=== PATIENT | male | born 1935 | race American Indian/Alaskan Native ===

== ENCOUNTER 2016-11-26 19:05 | Emergency (ER) | payer MEDICARE ==
[2016-11-26 20:16] LABS: Hemoglobin 12.1 gm/dl (11.8-15.2); Mean Corpuscular HGB Conc 33 % (32-34); Mean Corpuscular Hemoglobin 32 pg (28-32); Mean Corpuscular Volume 96 fl (84-94); Platelet Count 168 K/mm3 (140-440); Red Blood Count 3.84 M/mm3 (3.65-5.03); Red Cell Distribution Width 15.3 % (13.2-15.2); White Blood Count 3.4 K/mm3 (4.5-11.0)
[2016-11-26 20:40] LABS: Anion Gap 13 mmol/L; BUN/Creatinine Ratio 18.75; Blood Urea Nitrogen 15 mg/dL (9-20); Calcium 8.3 mg/dL (8.4-10.2); Carbon Dioxide 31 mmol/L (22-30); Chloride 98.2 mmol/L (98-107); Glucose 262 mg/dL (75-100); Potassium 4.4 mmol/L (3.6-5.0); Sodium 138 mmol/L (137-145)
[2016-11-26 23:05] VITALS: BP 163/64
--- NOTE | 2016-11-26 23:52 | Emergency Department Report ---
HPI - General Chief Complaint: Dyspnea/Respdistress - HPI HPI: Patient with history of CABG came to ED with no complaints really but he was being evaluated by home health when they noticed he was short of breath. Patient is on home oxygen. He was advised to come to the deep abdomen and person. Denies any leg swelling, denies any PND orthopnea. ED Past Medical Hx - Past Medical History Previous Medical History?: Yes Hx Hypertension: Yes Hx Congestive Heart Failure: No Hx Diabetes: Yes (iddm type 2) Hx GERD: Yes Hx Asthma: Yes Hx COPD: Yes Additional medical history: osteoporosis, Dementia, fib, cad, anemia, hyperlipidemia - Surgical History Past Surgical History?: Yes Hx Open Heart Surgery: Yes (2010) - Social History Smoking Status: Never Smoker Substance Use Type: None - Medications Home Medications: Home Medications Medication Instructions Recorded Confirmed Last Taken Type Acetaminophen [Acetaminophen TAB] 500 mg PO Q6HR 10/03/16 10/03/16 10/02/16 History Albuterol Sulfate [Albuterol 0.63% 0.63 mg IH TID PRN 10/03/16 10/03/16 History NEBS] Amiodarone HCl [Amiodarone 100 MG 200 mg PO DAILY 10/03/16 10/03/16 10/02/16 History TAB] Aspirin EC [Aspirin Enteric Coated 81 mg PO QDAY 10/03/16 10/03/16 10/02/16 History TAB] Bicalutamide [Casodex] 50 mg PO DAILY 10/03/16 10/03/16 10/02/16 History Budesonide 1 mg IH DAILY 10/03/16 10/03/16 10/02/16 History Cetirizine HCl [ZyrTEC] 10 mg PO DAILY 10/03/16 10/03/16 10/02/16 History Cilostazol [Pletal] 100 mg PO BID 10/03/16 10/03/16 10/02/16 History Cyanocobalamin (Vitamin B-12) 500 mcg SL DAILY 10/03/16 10/03/16 10/02/16 History [Vitamin B-12] Dextrin [Fiber] 350 gm PO DAILY 10/03/16 10/03/16 10/02/16 History Famotidine [Pepcid] 20 mg PO BID 10/03/16 10/03/16 10/02/16 History Formoterol Fumarate [Perforomist] 20 mcg IH DAILY 10/03/16 10/03/16 10/02/16 History Furosemide [Lasix TAB] 40 mg PO QDAY 10/03/16 10/03/16 10/02/16 History Gabapentin [Neurontin] 300 mg PO BID 10/03/16 10/03/16 10/02/16 History Latanoprost 0.005% [Xalatan 0.005%] 1 drop OP QPM 10/03/16 10/03/16 10/02/16 History Levothyroxine Sodium [Levo-T] 50 mcg PO DAILY 10/03/16 10/03/16 10/02/16 History Loperamide HCl [Imodium A-D] 2 mg PO DAILY 10/03/16 10/03/16 10/02/16 History Memantine HCl/Donepezil HCl 1 each PO DAILY 10/03/16 10/03/16 10/02/16 History [Namzaric 28 mg-10 mg Capsule] Metoprolol Xl [Metoprolol 50 mg PO QDAY 10/03/16 10/03/16 10/02/16 History SUCCINATE ER TAB] Psyllium Husk/Aspartame [Metamucil 3.4 gm PO DAILY 10/03/16 10/03/16 10/02/16 History Fiber Singles Packet] Simvastatin [Zocor TAB] 40 mg PO QHS 10/03/16 10/03/16 10/02/16 History Tamsulosin [Flomax] 0.4 mg PO QDAY 10/03/16 10/03/16 10/02/16 History Zolpidem Tartrate [Edluar SUBL] 5 mg SL QHS PRN 10/03/16 10/03/16 10/02/16 History diphenhydrAMINE [Benadryl CAP] 25 mg PO Q8HR PRN 10/03/16 10/03/16 10/02/16 History guaiFENesin DM [Robitussin Dm] 10 ml PO Q6HR 10/03/16 10/03/16 10/02/16 History glipiZIDE XL [Glucotrol Xl] 5 mg PO QAM 10/05/16 10/05/16 Unknown History ED Review of Systems ROS: Stated complaint: SOB Other details as noted in HPI Comment: All other systems reviewed and negative Respiratory: shortness of breath Cardiovascular: as per HPI Physical Exam - Physical Exam Vital Signs: Vital Signs 11/26/16 11/26/16 11/26/16 19:30 20:00 23:04 Temperature 98.2 F Pulse Rate 47 L 46 L Respiratory 18 16 Rate Blood Pressure 177/65 Blood Pressure 163/64 [Left] O2 Sat by Pulse 100 100 100 Oximetry Physical Exam: Gen. alert and oriented 3 in no distress Head atraumatic normocephalic Eyes PERR LA EOMI Chest regular rate and rhythm normal S1-S2 lungs clear bilaterally Abdomen soft nondistended Back no point tenderness paravertebral tenderness Neuro no focal deficit. Psych normal mood. ED Course Vital Signs 11/26/16 11/26/16 11/26/16 19:30 20:00 23:04 Temperature 98.2 F Pulse Rate 47 L 46 L Respiratory 18 16 Rate Blood Pressure 177/65 Blood Pressure 163/64 [Left] O2 Sat by Pulse 100 100 100 Oximetry ED Medical Decision Making - Lab Data Result diagrams: 11/26/16 20:07 11/26/16 20:07 Critical care attestation.: If time is entered above; I have spent that time in minutes in the direct care of this critically ill patient, excluding procedure time. ED Disposition Clinical Impression: Shortness of breath, Bradycardia with 41-50 beats per minute Disposition: DC-01 TO HOME OR SELFCARE Is pt being admited?: No Does the pt Need Aspirin: No Condition: Stable Instructions: Coronary Artery Disease (ED) Referrals: PRIMARY CARE [Primary Care Provider] - 3-5 Days
--- NOTE | 2016-11-27 09:20 | XRay Report ---
Single view chest: History: Shortness of breath. Findings: Cardiomegaly. Trachea is midline. Ill-defined linear densities left lower lobe or true cardiac region probably related to scarring/discoid atelectasis. The minimal pleural thickening left chest. Right chest appears unremarkable. Impression: Findings as detailed above. If clinically indicated CT scan may be advised.
== END 2016-11-27 00:26 | disposition home or self-care (01) ==
LOC: ED 19:05
DX: R00.1 Bradycardia, unspecified (principal); R06.02 Shortness of breath; I10 Essential (primary) hypertension; K21.9 Gastro-esophageal reflux disease without esophagitis; J45.909 Unspecified asthma, uncomplicated; J44.9 Chronic obstructive pulmonary disease, unspecified
CPT/HCPCS: 36415; 71010; 80048; 83880; 84484; 85025; 93005; 93010; 99284

== ENCOUNTER 2017-02-12 11:01 | Emergency (ER) | payer MEDICARE ==
--- NOTE | 2017-02-12 12:48 | Emergency Department Report ---
HPI - General Time Seen by Provider: 02/12/17 12:27 - HPI HPI: Room 6 The patient is an 81-year-old male presenting with a chief complaint of dizziness. The patient was sent from a intermediate patient states for chief complaint of dizziness. The patient states after waking this morning he felt slightly dizzy. The patient states he was sitting in his walker when he attempted to close a cabinet. The patient states he leaned over too far and fell without losing consciousness. Patient denies headache. Patient denies shortness of breath or palpitations. Patient currently denies complaints. Location: Head Duration: One day Quality: Dizziness Severity: Mild Modifying factors: [see above] Context: [see above] Mode of transportation: [not driving] ED Past Medical Hx - Past Medical History Hx Hypertension: Yes Hx Diabetes: Yes (iddm type 2) Hx GERD: Yes Hx Asthma: Yes Hx COPD: Yes Additional medical history: osteoporosis, Dementia, fib, cad, anemia, hyperlipidemia - Surgical History Hx Open Heart Surgery: Yes (2010) - Family History Family history: no significant - Social History Smoking Status: Former Smoker (none 6 years) Substance Use Type: None - Medications Home Medications: Home Medications Medication Instructions Recorded Confirmed Last Taken Type Acetaminophen [Acetaminophen TAB] 500 mg PO Q6HR 10/03/16 10/03/16 10/02/16 History Albuterol Sulfate [Albuterol 0.63% 0.63 mg IH TID PRN 10/03/16 10/03/16 History NEBS] Amiodarone HCl [Amiodarone 100 MG 200 mg PO DAILY 10/03/16 10/03/16 10/02/16 History TAB] Aspirin EC [Aspirin Enteric Coated 81 mg PO QDAY 10/03/16 10/03/16 10/02/16 History TAB] Bicalutamide [Casodex] 50 mg PO DAILY 10/03/16 10/03/16 10/02/16 History Budesonide 1 mg IH DAILY 10/03/16 10/03/16 10/02/16 History Cetirizine HCl [ZyrTEC] 10 mg PO DAILY 10/03/16 10/03/16 10/02/16 History Cilostazol [Pletal] 100 mg PO BID 10/03/16 10/03/16 10/02/16 History Cyanocobalamin (Vitamin B-12) 500 mcg SL DAILY 10/03/16 10/03/16 10/02/16 History [Vitamin B-12] Dextrin [Fiber] 350 gm PO DAILY 10/03/16 10/03/16 10/02/16 History Famotidine [Pepcid] 20 mg PO BID 10/03/16 10/03/16 10/02/16 History Formoterol Fumarate [Perforomist] 20 mcg IH DAILY 10/03/16 10/03/16 10/02/16 History Furosemide [Lasix TAB] 40 mg PO QDAY 10/03/16 10/03/16 10/02/16 History Gabapentin [Neurontin] 300 mg PO BID 10/03/16 10/03/16 10/02/16 History Latanoprost 0.005% [Xalatan 0.005%] 1 drop OP QPM 10/03/16 10/03/16 10/02/16 History Levothyroxine Sodium [Levo-T] 50 mcg PO DAILY 10/03/16 10/03/16 10/02/16 History Loperamide HCl [Imodium A-D] 2 mg PO DAILY 10/03/16 10/03/16 10/02/16 History Memantine HCl/Donepezil HCl 1 each PO DAILY 10/03/16 10/03/16 10/02/16 History [Namzaric 28 mg-10 mg Capsule] Metoprolol Xl [Metoprolol 50 mg PO QDAY 10/03/16 10/03/16 10/02/16 History SUCCINATE ER TAB] Psyllium Husk/Aspartame [Metamucil 3.4 gm PO DAILY 10/03/16 10/03/16 10/02/16 History Fiber Singles Packet] Simvastatin [Zocor TAB] 40 mg PO QHS 10/03/16 10/03/16 10/02/16 History Tamsulosin [Flomax] 0.4 mg PO QDAY 10/03/16 10/03/16 10/02/16 History Zolpidem Tartrate [Edluar SUBL] 5 mg SL QHS PRN 10/03/16 10/03/16 10/02/16 History diphenhydrAMINE [Benadryl CAP] 25 mg PO Q8HR PRN 10/03/16 10/03/16 10/02/16 History guaiFENesin DM [Robitussin Dm] 10 ml PO Q6HR 10/03/16 10/03/16 10/02/16 History glipiZIDE XL [Glucotrol Xl] 5 mg PO QAM 10/05/16 10/05/16 Unknown History ED Review of Systems ROS: Stated complaint: HEADACHE Other details as noted in HPI Comment: All other systems reviewed and negative Constitutional: denies: chills, fever Eyes: denies: eye pain, eye discharge, vision change ENT: denies: ear pain, throat pain Respiratory: denies: cough, shortness of breath, wheezing Cardiovascular: denies: chest pain, palpitations Endocrine: no symptoms reported Gastrointestinal: denies: abdominal pain, nausea, diarrhea Genitourinary: denies: urgency, dysuria Musculoskeletal: denies: back pain, joint swelling, arthralgia Skin: denies: rash, lesions Neurological: other (dizziness) Psychiatric: denies: anxiety, depression Hematological/Lymphatic: denies: easy bleeding, easy bruising Physical Exam - Physical Exam Physical Exam: GENERAL: The patient is well-developed well-nourished male lying on stretcher not appearing to be in acute distress. [] HEENT: Normocephalic. Atraumatic. Extraocular motions are intact. Patient has moist mucous membranes. NECK: Supple. Trachea midline CHEST/LUNGS: Clear to auscultation. There is no respiratory distress noted. HEART/CARDIOVASCULAR: Regular. There is no tachycardia. There is no gallop rub or murmur. ABDOMEN: Abdomen is soft, nontender. Patient has normal bowel sounds. There is no abdominal distention. SKIN: There is no rash. There is no edema. There is no diaphoresis. NEURO: The patient is awake, alert, and oriented. The patient is cooperative. The patient has no focal neurologic deficits. The patient has normal speech. 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 ED Course - Reevaluation(s) Reevaluation #1: 02/12/17 14:[address] head. Patient alert and oriented to self, place and year. Patient states he did not strike his head and only has a headache because he is hungry. I discussed with the patient my recommendation for CT scan despite lack of head trauma. Patient verbalized understanding but still refuses head CT ED Medical Decision Making - Lab Data Result diagrams: 02/12/17 13:06 02/12/17 13:06 Laboratory Tests 02/12/17 02/12/17 02/12/17 13:06 13:06 13:06 WBC 3.3 L RBC 4.20 Hgb 12.8 Hct 39.5 MCV 94 MCH 31 MCHC 33 RDW 14.8 Plt Count 118 L Lymph % (Auto) 21.5 [place] % (Auto) 9.7 H Eos % (Auto) 3.7 Baso % (Auto) 1.1 Lymph # 0.7 L [place] # 0.3 Eos # 0.1 Baso # 0.0 Seg Neutrophils % 64.0 Seg Neutrophils # 2.1 PT INR APTT Sodium 139 Potassium 3.9 Chloride 100.5 Carbon Dioxide 30 Anion Gap 12 BUN 14 Creatinine 0.6 L Estimated GFR > 60 BUN/Creatinine Ratio 23.33 Glucose 222 H Calcium 8.2 L Total Bilirubin 0.20 AST 26 ALT 20 Alkaline Phosphatase 91 Total Creatine Kinase 101 CK-MB (CK-2) 3.7 CK-MB (CK-2) Rel Index 3.6 Troponin T < 0.010 Total Protein 6.3 Albumin 3.1 L Albumin/Globulin Ratio 1.0 02/12/17 13:06 WBC RBC Hgb Hct MCV MCH MCHC RDW Plt Count Lymph % (Auto) [place] % (Auto) Eos % (Auto) Baso % (Auto) Lymph # [place] # Eos # Baso # Seg Neutrophils % Seg Neutrophils # PT 14.7 INR 1.09 APTT 36.2 Sodium Potassium Chloride Carbon Dioxide Anion Gap BUN Creatinine Estimated GFR BUN/Creatinine Ratio Glucose Calcium Total Bilirubin AST ALT Alkaline Phosphatase Total Creatine Kinase CK-MB (CK-2) CK-MB (CK-2) Rel Index Troponin T Total Protein Albumin Albumin/Globulin Ratio - EKG Data -: EKG Interpreted by Me EKG shows normal: sinus rhythm Rate: normal - EKG Data When compared to previous EKG there are: no significant change Interpretation: unchanged when compared t (11/26/2016 ) - Differential Diagnosis ICH, anemia, dehydration, electrolyte abnormality, vertigo Critical care attestation.: If time is entered above; I have spent that time in minutes in the direct care of this critically ill patient, excluding procedure time. ED Disposition Clinical Impression: Fall Disposition: DC-01 TO HOME OR SELFCARE Is pt being admited?: No Does the pt Need Aspirin: No Condition: Stable Additional Instructions: Return to the emergency department immediately should you develop worsening symptoms, fever, inability to tolerate food or liquid or any other concerns. Referrals: PRIMARY CARE, [Primary Care Provider] - 3-5 Days Time of Disposition: 14:08
[2017-02-12 13:13] LABS: Basophils % (Auto) 1.1 % (0.0-1.8); Eosinophils % (Auto) 3.7 % (0.0-4.3); Hematocrit 39.5 % (35.5-45.6); Hemoglobin 12.8 gm/dl (11.8-15.2); Mean Corpuscular HGB Conc 33 % (32-34); Mean Corpuscular Hemoglobin 31 pg (28-32); Mean Corpuscular Volume 94 fl (84-94); Platelet Count 118 K/mm3 (140-440); Red Cell Distribution Width 14.8 % (13.2-15.2); White Blood Count 3.3 K/mm3 (4.5-11.0)
[2017-02-12 13:15] VITALS: BP 142/79
[2017-02-12 13:23] LABS: INR 1.09 (0.87-1.13)
[2017-02-12 13:24] LABS: Partial Thromboplastin Time 36.2 Sec. (24.2-36.6)
[2017-02-12 13:41] LABS: Creatine Kinase MB 3.7 ng/mL (0.0-4.0)
[2017-02-12 13:42] LABS: Alanine Aminotransferase 20 units/L (7-56); Albumin 3.1 g/dL (3.9-5); Alkaline Phosphatase 91 units/L (35-129); Anion Gap 12 mmol/L; BUN/Creatinine Ratio 23.33; Blood Urea Nitrogen 14 mg/dL (9-20); Calcium 8.2 mg/dL (8.4-10.2); Carbon Dioxide 30 mmol/L (22-30); Chloride 100.5 mmol/L (98-107); Creatine Kinase 101 units/L (55-170); Glucose 222 mg/dL (75-100); Potassium 3.9 mmol/L (3.6-5.0); Sodium 139 mmol/L (137-145); Total Protein 6.3 g/dL (6.3-8.2)
== END 2017-02-12 14:59 | disposition home or self-care (01) ==
LOC: ED 11:01
DX: R42 Dizziness and giddiness (principal); I10 Essential (primary) hypertension; E11.9 Type 2 diabetes mellitus without complications; K21.9 Gastro-esophageal reflux disease without esophagitis; J44.9 Chronic obstructive pulmonary disease, unspecified; E78.5 Hyperlipidemia, unspecified; Z87.891 Personal history of nicotine dependence; Z79.82 Long term (current) use of aspirin
CPT/HCPCS: 36415; 80053; 82550; 82553; 84484; 85025; 85610; 85730; 93005; 93010; 99283